=== PATIENT | female | born 1935 | race Caucasian/White ===

== ENCOUNTER 2020-11-04 13:29 | Outpatient (REF) | payer SELFPAY | END 2020-11-04 13:30 | disposition home or self-care (01) | LOC: HO.HAP 13:29 | PROVIDERS: PCP Family Medicine; Referring Provider Family Medicine; Visit Provider Family Medicine | DX: Z13.89 Encounter for screening for other disorder (principal) | CPT/HCPCS: 92700 ==

== ENCOUNTER 2021-02-19 13:00 | Outpatient (REF) | payer SELFPAY | END 2021-02-19 13:01 | disposition home or self-care (01) | LOC: HO.HAP 13:00 | PROVIDERS: Visit Provider Family Medicine | DX: Z46.1 Encounter for fitting and adjustment of hearing aid (principal); H90.3 Sensorineural hearing loss, bilateral | CPT/HCPCS: 99499; V5299 ==

== ENCOUNTER 2021-11-11 10:58 | Outpatient (REF) | payer SELFPAY | END 2021-11-11 10:59 | disposition home or self-care (01) | LOC: HO.HAP 10:58 | PROVIDERS: Visit Provider Family Medicine | DX: Z46.1 Encounter for fitting and adjustment of hearing aid (principal); H90.3 Sensorineural hearing loss, bilateral | CPT/HCPCS: 99499 ==

== ENCOUNTER 2022-07-14 10:59 | Outpatient (REF) | payer SELFPAY | END 2022-07-14 11:00 | disposition home or self-care (01) | LOC: HO.HAP 10:59 | PROVIDERS: Visit Provider Family Medicine | DX: Z46.1 Encounter for fitting and adjustment of hearing aid (principal); H90.3 Sensorineural hearing loss, bilateral | CPT/HCPCS: 99499 ==

== ENCOUNTER 2023-05-04 10:43 | Outpatient (REF) | payer SELFPAY | END 2023-05-04 10:44 | disposition home or self-care (01) | LOC: HO.HAP 10:43 | PROVIDERS: Visit Provider Family Medicine | DX: Z46.1 Encounter for fitting and adjustment of hearing aid (principal) | CPT/HCPCS: 92700 ==

== ENCOUNTER 2023-09-08 13:50 | Outpatient (REF) | payer SELFPAY | END 2023-09-08 13:51 | disposition home or self-care (01) | LOC: HO.HAP 13:50 | PROVIDERS: Visit Provider Family Medicine | DX: Z46.1 Encounter for fitting and adjustment of hearing aid (principal); H90.6 Mixed conductive and sensorineural hearing loss, bilateral | CPT/HCPCS: 92592 ==

== ENCOUNTER 2024-03-16 13:24 | Outpatient (REF) | payer SELFPAY | END 2024-03-16 13:25 | disposition home or self-care (01) | LOC: HO.HAP 13:24 | PROVIDERS: Visit Provider Family Medicine | DX: Z46.1 Encounter for fitting and adjustment of hearing aid (principal); H90.3 Sensorineural hearing loss, bilateral | CPT/HCPCS: 92592 ==

== ENCOUNTER 2024-05-09 13:47 | Outpatient (REF) | payer SELFPAY | END 2024-05-09 13:48 | disposition home or self-care (01) | LOC: HO.HAP 13:47 | PROVIDERS: Visit Provider Family Medicine | DX: Z46.1 Encounter for fitting and adjustment of hearing aid (principal); H90.3 Sensorineural hearing loss, bilateral | CPT/HCPCS: 92592 ==

== ENCOUNTER 2025-07-17 14:19 | Outpatient (REF) | payer MEDICARE, OTHER, SELFPAY ==
--- OUTSIDE RECORDS SUMMARY | 2025-07-17 15:19 | XMS_ITS | Clinical Summary ---
Author Organization [facility] Address [address] [address] Phone Care Team Providers Care Chief Operator Lock Tender Name Role Phone Claudia Mills MD Primary Care Provider Swapnil Castellano DO Unavailable [phone] Sofiya Saini MD Unavailable [phone] Mary Brambila RETAIL ADVERTISING EXECUTIVE Unavailable [phone] Allergies Active Allergy Reactions Criticality Noted Date Comments Alendronate Nausea and/or Vomiting 03/20/2019 Buspirone Nausea and/or Vomiting 03/20/2019 Citalopram Nausea and/or Vomiting 03/20/2019 Enalapril Maleate Unknown 03/20/2019 Estrogens Other (See Comments) 03/20/2019 Numbness in arms and hands Amlodipine Itching 03/20/2019 Shrimp Other (See Comments) 03/20/2019 Tongue swelling,vomiting Medications loratadine (CLARITIN REDITABS) 10 mg dissolvable tablet as needed. Active mirtazapine (REMERON) 45 MG tablet Take 45 mg by mouth nightly at bedtime. Active pravastatin (PRAVACHOL) 40 MG tablet Take 40 mg by mouth daily. Active acetaminophen (TYLENOL) 325 mg tablet Take 2 tablets (650 mg total) by mouth every 6 (six) hours as needed for mild pain. 0 9 Active apixaban (ELIQUIS) 5 mg tablet Take 2 tablets (10 mg total) by mouth 2 (two) times a day. Take 2 tablets twice daily for 7 days then 1 tablet twice daily 70 tablet 9 Active Additional Information Patient taking differently: 5 mgOral 2 times daily,(No instructions reported), Reported on 01/10/2023 melatonin 5 mg Cap Take 3 mg by mouth. Active glucosamine-cho ndroitin 500-400 mg Cap Take 1 capsule by mouth daily. Active cholecalciferol (VITAMIN D3) 5,000 unit capsuleIndicati ons:4,000mg Take by mouth daily. Indications: 4,000mg Active flaxseed oil 1,000 mg Cap Take 1,000 mg by mouth daily. Active losartan (COZAAR) 100 MG tablet Take 100 mg by mouth daily. 1 Active Medication-Free Text 10 mg. Prevagen takes 1 tab a day. Active omega-3 fatty acids-fish oil 340-1,000 mg Cap Take by mouth daily. Active Active Problems Patient Care Coordination No te Formatting of this note migh t be different from the original. Height 145.8cm no shoes 01/10/2023 Problem Noted Date Diagnosed Date Skin lesion of breast 08/11/2021 Acute deep vein thrombosis (DVT) of left lower e xtremity 04/24/2019 Assessment & Plan (04/26/2019 2:06 PM EDT): Patient presented to the hospital with left leg edema. On ultrasound she had a large left leg DVT extending into the pelvis with marked swelling and moderate pain. CT angiogram showed a small PE. These probably occurred due to in bed with shingles Initially she was given heparin IV but this was changed to Lovenox with Coumadin Patient worked with PT today and had some mild discomfort and shortness of breath. 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 This is of the right breast. This could represent inclusion of the skin. The possibility of a malignancy exists but is not obvious on this exam. There is no evidence of rash or peau d'orange. No signs of Paget's. No other breast masses. I have recommended three-month follow-up which she declines. Biopsy would likely mean removing that part of her nipple and she declines biopsy as well. She knows to look for increase in size, drainage, redness and/or rash and will return if she develops any of these. Diabetes mellitus 03/14/2019 Assessment & Plan (04/26/2019 2:05 PM EDT): A1c 5.6 Anxiety 03/14/2019 Situational depression 03/14/2019 Assessment & Plan (04/24/2019 6:16 PM EDT): Remeron will be continued. Shingles 03/14/2019 Obesity (BMI 30-39.9) 03/14/2019 Resolved Problems Problem Noted Date Diagnosed Date Resolved Date Pulmonary embolus 04/25/2019 04/26/2019 Assessment & Plan (04/25/2019 9:44 AM EDT): Noted in the left upper lobe, no signs stable -Anticoagulation as above -Echo ordered for this morning Encounters Date Type Department Care Team Description 06/04/2025 11:30 AM EDT Office Visit [address] [address] Claudia Mills MD [facility], [place], PT Left medial knee pain (Primary Dx) 05/29/2025 11:30 AM EDT Office Visit [address] [address] Claudia Mills MD [facility], [place], PT Left medial knee pain (Primary Dx) 05/29/2025 Plan of Care Documentation [address] [address] from Last 3 Months Immunizations Immunization Administration Dates Next Due COVID-19 (Pre-09/19) Moderna Vaccine, mRNA, PF 0 02/05/2021,01/08/2021 Hepatitis B Adult 05/02/1997,11/01/1996 INFLUENZA, SPLIT VIRUS, TRIVALENT W/ PRESERVATIV E IM 07/14/2012,08/31/2011 Influenza High-Dose Trivalent Preservative Free IM 08/10/2019,08/24/2016 Influenza Quadrivalent w/ Preservative IM 2018 Influenza, Unspecified Formulation 09/30/1999 Td (adult), not adsorbed 11/28/2005 Tdap 03/16/2016 Family History Medical History Relation Comments Cancer Brother Lung cancer Brother Deep vein thrombosis Daughter Heart failure Maternal Grandmother Breast cancer Mother w/mets Breast cancer Unspecified maternal cousins Relation Status Comments Brother Daughter Alive Father Maternal Grandmother Mother Unspecified Alive Social History Tobacco Use Types Packs/Day Years Used Date Smoking Tobacco: Never Smokeless Tobacco: Never Alcohol Use Standard Drinks/Week Comments Not Currently 0 (1 standard drink = 0.6 oz pur e alcohol) occasional glass of wine Education Answer Date Recorded Are you interested in more education? Not on kaylen e 03/25/2023 Are you concerned about learning? Not on file 03/25/2023 No 03/25/2023 No 03/25/2023 Digital Access Answer Date Recorded No 04/23/2023 No 04/23/2023 Reliable internet access at home? Not on file 04/23/2023 Device with a working camera? Not on file Comments No Sex and Gender Information Value Date Recorded Sex Assigned at Not on file Legal Sex Female 10:14 PM EDT Gender Identity Not on file Sexual Orientation Not on file Last Filed Vital Signs Vital Sign Reading Time Taken Comments Blood Pressure 186/75 01/10/2023 3:15 PM EST Second B/P 164/79 Pulse 67 01/10/2023 3:15 PM EST Temperature 36.8 C (98.2 F) 01/10/2023 3:15 PM EST Respiratory Rate 18 06/15/2019 2:5 2 PM EDT Oxygen Saturation 97% 01/10/2023 3:1 5 PM EST Inhaled Oxygen Concentration - - Weight 82.8 kg (182 lb 8 oz) 01/10/2023 3:15 PM EST Height 145.8 cm (4' 9.4 ) 01/10/2023 3: 15 PM EST Body Mass Index 38.94 01/10/2023 3:15 PM EST Plan of Treatment Health Maintenance Due Date Last Done Comments DEPRESSION SCREENING 1949 OSTEOPOROSIS SCREENING INITIAL (ONE-TIME) 2002 RSV VACCINE (1 - 1-dose 75+ series) 2012 DIABETIC EYE EXAM 03/14/2019 HEMOGLOBIN A1C 10/26/2019 04/25/2019 CREATININE LEVEL 01/10/2024 01/10/2023, , 04/26/2019, Additional history exists POTASSIUM LEVEL 01/10/2024 01/10/2023, 11/29, 04/26/2019, Additional history exists COVID-19 VACCINE ( season) 2024 09/06/2023, 09/06/2023, 10/27/2022, Additional history exists Adult Td,Tdap Booster 03/16/2026 03/16/2016, 006 PNEUMOCOCCAL VACCINES (50+ years) Completed 01/11/2017, 01/15/2016 ZOSTER VACCINES Completed 10/04/2021, 08/05/2021 HEPATITIS A VACCINES Aged Out No long er eligible based on patient's age to complete this topic HIB VACCINES Aged Out No longer eligi ble based on patient's age to complete this topic MENINGOCOCCAL VACCINES (ACWY) Aged Out No longer eligible based on patient's age to complete this topic MENINGOCOCCAL VACCINES (B) Aged Out N o longer eligible based on patient's age to complete this topic Medical Devices Not on file Procedures Procedure Name Priority Date/Time Associated Diagnosis Comments COMPREHENSIVE METABOLIC PANEL Routine 01/10/2023 2:18 PM EST Acute deep vein thrombosis (DVT) of left lower extremity HEMOGLOBIN A1C Routine 04/25/2019 6:10 AM EDT from Last 3 Months or Most Recently Relevant to Health Maintenance Results * (ABNORMAL) Comprehensive metabolic panel (01/10/2023 2:18 PM EST) SODIUM 140 133 - 146 mmol/L [facility] POTASSIUM 4.6 3.3 - 5.1 mmol/L [facility] CHLORIDE 102 96 - 108 mmol/L [facility] CO2 30 21 - 35 mmol/L [facility] BUN 12 6 - 19 mg/dL [facility] CREATININE 0.70 0.5 - 1.5 mg/dL [facility] GLUCOSE 106(H) 70 - 99 mg/dL [facility] ALBUMIN 4.1 3.9 - 4.8 g/dL [facility] TOTAL PROTEIN 7.2 6.5 - 8.0 g/dL [facility] CALCIUM 9.3 8.4 - 10.3 mg/dL [facility] ALKALINE PHOSPHATASE 62 39 - 117 U/L [facility] TOTAL BILIRUBIN 0.4 0.0 - 1.2 mg/dL [facility] AST 21 0 - 37 U/L [facility] ALT 21 0 - 40 U/L [facility] GLOBULIN 3.1 1 - 4.8 g/dL [facility] EGFR 85 >59 mL/min/1.7 3m2 [facility] Comment:Estimated glomerular filtration rate calculated using the CKD-EPI refit equation. ANION GAP 13 10 - 20 mmol/L [facility] Blood 01/10/2023 2:18 PM EST 01/10/2023 2:44 PM EST us Swapnil Castellano DO LAB BLOOD ORDERABLES Final Result Performing Organization Address [facility] Co de Phone Number [address] [address] * Hemoglobin A1c (04/25/2019 6:10 AM EDT) HEMOGLOBIN A1C 5.6 4.3 - 5.8 % [facility] Blood 04/25/2019 6:10 AM EDT 04/25/2019 6:15 AM EDT us Stephanie Clarke MD LAB BLOOD ORDERABLES Final R esult Performing Organization Address [facility]/ZIP Co de Phone Number [address] [address] from Last 3 Months or Most Recently Relevant to Health Maintenance Insurance MEDICARE PART A & B [facility] MEDICARE SUPPLEMENT MEDICARE PART A & B [facility] MEDICARE SUPPLEMENT MEDICARE PART A & B [facility] MEDICARE SUPPLEMENT MEDICARE PART A & B [facility] MEDICARE SUPPLEMENT MEDICARE PART A & B [facility] MEDICARE SUPPLEMENT MEDICARE PART A & B [employer] MEDICARE SUPPLEMENT MEDICARE PART A & B [facility] MEDICARE SUPPLEMENT MEDICARE PART A & B [facility] MEDICARE SUPPLEMENT MEDICARE PART A & B [facility] MEDICARE SUPPLEMENT Advance Directives For more information, please contact: [phone] (9AM - 5PM [facility], Tuesday-Tuesday) Documents on File Type Date Recorded Patient [place] Expl anation Healthcare Proxy 04/30/2019 12:09 PM MOLST 04/30/2019 12:09 PM * DNR/DNI (No CPR/No Intubation) (Latest Code Status on File) Date Activated Date Inactivated Comments 04/24/2019 6:44 PM 04/27/2019 4:51 PM Question Answer Comments Code Status Confirmed With: Patient Healthcare Agents on File Name Relationship [facility] Felicity Castañeda Daughter .Primary Health Care Agent (Proxy form on file) Karol Waters Daughter Alternate Health care Agent (Proxy form on file) Care Teams Chief Operator Lock Tender Relationship Specialty Start Date End Date Claudia Mills MD [email or web address] PCP - General Family Medicine 01/31/18 Swapnil Castellano DO [address] [place] [id number] [email or web address] Primary Oncologist Hematology and Oncology 06/13/19 Sofiya Saini MD [address] [place] [address], [address] [place] [id number] [email or web address] General Surgery 06/13/19 Mary Brambila FNP [address] [place] [id number] [email or web address] Nurse Practitioner Medical Oncology 12/22/21 Additional Source Comments The information contained in this document represents components of the legal health record. It is not the complete legal health record.[facility]
== END 2025-07-17 14:20 | disposition home or self-care (01) ==
LOC: HO.SH 14:19
PROVIDERS: Visit Provider Family Medicine
DX: Z01.118 Encounter for examination of ears and hearing with other abnormal findings (principal); H90.6 Mixed conductive and sensorineural hearing loss, bilateral
CPT/HCPCS: 92557; 92567

== ENCOUNTER 2025-07-17 15:09 | Outpatient (REF) | payer SELFPAY ==
--- NOTE | 2025-07-17 15:27 | MHC.AU.HA3 ---
Hearing Instrument Follow-Up Date of Visit: 07/17/25 Right Ear: none Left Ear: Make, Model, Color, Serial Number: Fanny Isbell [id number] ITC SN: [id number] Color: [place] Entrance Guard Repair Warranty: 10/30/2020 [facility] Service Plan: exp Battery Size: 312 Type of Wax Guard: CeruStop Dispensed By: [facility] Date of Fittin03/09/2013 Follow-Up Summary: Seen for evaluation and hearing aid maintenance today. Reports hearing aid is working well. Build up noted in wax guard. Cleaned aid, replaced wax guard, ran through dehumidifier. Listening check positive. Recommendations: Recommendations: Hearing instrument follow-up or maintenance as needed. Diagnosis Code(s): Primary Diagnosis: H90.6 Mixed Hearing Loss, Bilateral Signature: Provider: Johnathan Villanueva, [facility]
== END 2025-07-17 15:10 | disposition home or self-care (01) ==
LOC: HO.HAP 15:09
PROVIDERS: Visit Provider Family Medicine
DX: Z46.1 Encounter for fitting and adjustment of hearing aid (principal); H90.6 Mixed conductive and sensorineural hearing loss, bilateral
CPT/HCPCS: 92592